=== PATIENT | female | born 2000 | race Two or more races ===

== ENCOUNTER 2021-01-19 11:10 | Emergency (ER) | payer OTHER ==
[~2021-01-19] VITALS: Ht 147.3 cm; Wt 89.4 kg
[~2021-01-19 11:10] MED LIST: AMOX1TAB5 PO; CEFADROXIL500 MG PO; ORASEP SPRAY30 ML MM
== END 2021-01-19 21:16 | disposition home or self-care (01) ==
LOC: ER 11:10
DX: O99.612 Diseases of the digestive system complicating pregnancy, second trimester (principal); K92.89 Other specified diseases of the digestive system; Z3A.25 25 weeks gestation of pregnancy

== ENCOUNTER 2021-02-16 07:59 | Outpatient (CLI) | payer OTHER | END 2021-02-16 08:57 | disposition home or self-care (01) | LOC: PRENATAL 07:59 | PROVIDERS: ATTEND Obstetrics & Gynecology Maternal & Fetal Medicine | DX: O35.0XX1 Maternal care for (suspected) central nervous system malformation in fetus, fetus 1 (principal); O35.3XX1 Maternal care for (suspected) damage to fetus from viral disease in mother, fetus 1; O98.513 Other viral diseases complicating pregnancy, third trimester; O99.213 Obesity complicating pregnancy, third trimester; Z36.89 Encounter for other specified antenatal screening; Z3A.29 29 weeks gestation of pregnancy ==